=== PATIENT | male | born 1970 | race African-American/Black ===

== ENCOUNTER 2021-10-02 21:23 | Emergency (ER) | payer SELFPAY ==
[~2021-10-02] VITALS: Ht 182.9 cm; Wt 91.0 kg
[2021-10-03] MEDS ORDERED: KETOROLAC 30MG/ML VIAL IM ONE (04:15)
[2021-10-03 04:22] VITALS: BP 153/98
[2021-10-03] MEDS ORDERED: NAP5EC MT (04:29)
== END 2021-10-03 04:43 | disposition home or self-care (01) ==
LOC: ER 21:23
DX: M79.604 Pain in right leg (principal); M10.9 Gout, unspecified; I10 Essential (primary) hypertension
CPT/HCPCS: 96372; 99283; J1885

== ENCOUNTER 2022-01-19 03:34 | Emergency (ER) | payer MEDICAID ==
[~2022-01-19] VITALS: Ht 182.9 cm; Wt 91.4 kg
[~2022-01-19 03:34] MED LIST: NAP5EC MT
[2022-01-19] MEDS ORDERED: HYDROCODONE/ACETAMINOPHEN 5/325MG TABLET PO ONE (05:15)
[2022-01-19 05:28] VITALS: BP 129/99
[2022-01-19] MEDS ORDERED: ACET-2708 MT (06:39)
== END 2022-01-19 06:49 | disposition home or self-care (01) ==
LOC: ER 03:34
DX: S50.12XA Contusion of left forearm, initial encounter (principal); W18.30XA Fall on same level, unspecified, initial encounter; Y93.89 Activity, other specified; Y92.89 Other specified places as the place of occurrence of the external cause; Y99.8 Other external cause status
CPT/HCPCS: 73080; 73090; 73110; 99284; A4565

== ENCOUNTER 2022-06-11 18:01 | Emergency (ER) | payer SELFPAY ==
[~2022-06-11] VITALS: Ht 182.9 cm; Wt 91.0 kg
[~2022-06-11 18:01] MED LIST changes: +ACET-2708 MT
[2022-06-11 18:07] VITALS: BP 139/95
[2022-06-11] MEDS ORDERED: INDOMETHACIN 25MG CAPSULE PO ONE (20:45)
[2022-06-11] MEDS ORDERED: INDO50CA98 MT (21:21)
== END 2022-06-11 21:20 | disposition home or self-care (01) ==
LOC: ER 18:01
DX: R22.42 Localized swelling, mass and lump, left lower limb (principal); M10.9 Gout, unspecified; I10 Essential (primary) hypertension
CPT/HCPCS: 73610; 99283

== ENCOUNTER 2022-06-18 19:10 | Emergency (ER) | payer SELFPAY ==
[~2022-06-18] VITALS: Ht 182.9 cm; Wt 97.3 kg
[~2022-06-18 19:10] MED LIST changes: +INDO50CA98 MT
[2022-06-18 19:19] VITALS: BP 170/101
[2022-06-18] MEDS ORDERED: INDO50CA98 MT (22:01)
== END 2022-06-18 22:11 | disposition home or self-care (01) ==
LOC: ER 19:10
DX: M25.572 Pain in left ankle and joints of left foot (principal); Z76.0 Encounter for issue of repeat prescription; Z79.899 Other long term (current) drug therapy
CPT/HCPCS: 99281